=== PATIENT | female | born 1975 | race Caucasian/White ===

== ENCOUNTER → 2017-06-01 | Outpatient (CLI) | payer OTHER ==
[~2017-06-01] MED LIST: COMPAZINE 110 MG/TAB PO
== END ==
LOC: MC.RAD 08:47
DX: Z12.31 Encounter for screening mammogram for malignant neoplasm of breast (principal)

== ENCOUNTER → 2018-06-26 | Outpatient (CLI) | payer OTHER ==
[~2018-06-26] MED LIST changes: +CIPRO 500MG TA500 MG PO
== END ==
LOC: MC.RAD 14:20
DX: Z12.31 Encounter for screening mammogram for malignant neoplasm of breast (principal)

== ENCOUNTER 2018-08-03 18:21 | Emergency (ER) | payer OTHER | END 2018-08-03 19:15 | disposition left against medical advice (07) | LOC: COL.ER 18:21 | DX: Z72.89 Other problems related to lifestyle (principal) ==

== ENCOUNTER 2018-09-14 16:08 | Emergency (ER) | payer SELFPAY ==
[~2018-09-14] VITALS: Ht 152.4 cm; Wt 77.8 kg
[2018-09-14 16:17] VITALS: TEMP 100.2
[2018-09-14 16:57] LABS: COLLECTION METHOD CLEAN CATCH
[2018-09-14 17:08] LABS: AMORPHOUS CRYSTAL Present /uL; MUCOUS Present /lpf; PH 6 (5-8); SQUAMOUS EPITHELIAL 0-2 /hpf; URINE APPEARANCE Clear; URINE BACTERIA None Seen /hpf; URINE BILIRUBIN Negative (NEGATIVE); URINE BLOOD 1+ (NEGATIVE); URINE COLOR Amber; URINE GLUCOSE Negative (NEGATIVE); URINE KETONE Negative (NEGATIVE); URINE LEUKOCYTE ESTERASE Negative (NEGATIVE); URINE NITRATE Positive (NEGATIVE); URINE PROTEIN(semi-quant) Negative (NEGATIVE); URINE UROBILINOGEN >=4.0 mg/dL (NEGATIVE)
[2018-09-14 17:52] LABS: BASO % 0.1 % (0.0-2.0); GRAN # 13.1 (1.4-6.5); GRAN % 89.7 % (42.2-75.2); HEMATOCRIT 37.1 % (37.0-47.0); HEMOGLOBIN 12.5 g/dl (12.5-16.0); LYMPH % 6.9 % (20.0-51.0); MEAN CELL VOLUME 81 fl (80.0-100.0); MEAN CORPUSCULAR HEMOGLOBIN 27 pg (27.0-31.0); MEAN CORPUSCULAR HGB CONC 34 g/dl (33.0-37.0); MEAN PLATELET VOLUME 10.6 fl (7.4-10.4); MONO # 0.4 (0.1-0.6); MONO % 2.9 % (1.7-9.3); PLATELET COUNT 337 K/mm3 (130-400)
[2018-09-14 18:01] LABS: ALBUMIN 4.4 gm/dL (3.5-5.0); BILIRUBIN,TOTAL 0.6 mg/dL (0.0-1.0); CALCIUM 9.7 mg/dL (8.4-10.2); CREATININE, serum 0.46 (0.52-1.25)
[2018-09-14] MEDS ORDERED: BACTRIM DS 8001 TAB PO (19:51)
[2018-09-14 20:22] VITALS: BP 124/63; PULSE 75
== END 2018-09-14 20:25 | disposition home or self-care (01) ==
LOC: COL.ER 16:08
PROVIDERS: Physician Assistant
DX: R33.9 Retention of urine, unspecified (principal); N28.89 Other specified disorders of kidney and ureter; E87.6 Hypokalemia; Z85.43 Personal history of malignant neoplasm of ovary; Z85.42 Personal history of malignant neoplasm of other parts of uterus; Z98.890 Other specified postprocedural states; Z90.712 Acquired absence of cervix with remaining uterus
CPT/HCPCS: J2270; J2405; J7030; Q9967

== ENCOUNTER → 2020-08-28 | Outpatient (CLI) | payer SELFPAY ==
[~2020-08-28] MED LIST changes: +BACTRIM DS 8001 TAB PO
[2020-08-28 15:50] LABS: COLLECTION METHOD CLEAN CATCH
[2020-08-28 15:58] LABS: MUCOUS Present /lpf; PH 6 (5-8); URINE APPEARANCE Hazy; URINE BACTERIA None Seen /hpf; URINE BILIRUBIN Negative (NEGATIVE); URINE BLOOD 1+ (NEGATIVE); URINE COLOR Yellow; URINE GLUCOSE Negative (NEGATIVE); URINE KETONE Trace (NEGATIVE); URINE LEUKOCYTE ESTERASE Trace (NEGATIVE); URINE NITRATE Negative (NEGATIVE); URINE PROTEIN(semi-quant) Negative (NEGATIVE); URINE UROBILINOGEN Negative (NEGATIVE)
== END | disposition still patient (30) ==
LOC: COL.LAB 15:20
PROVIDERS: Physician Assistant
DX: R31.9 Hematuria, unspecified (principal)

== ENCOUNTER → 2020-09-14 | Outpatient (CLI) | payer OTHER | LOC: MC.RAD 13:44 | DX: Z12.31 Encounter for screening mammogram for malignant neoplasm of breast (principal) ==